=== PATIENT | female | born 1950 | race Caucasian/White ===

== ENCOUNTER → 2017-12-06 | Outpatient (CLI) | payer OTHER, MEDICARE ==
[~2017-12-06] MED LIST: ADVAIR HFA 230M12 GM INH; FLOMAX0.4 MG PO; METFORMIN HCL500 MG PO; MOBIC15 MG PO; NORVASC5 MG PO
--- NOTE | ~2017-12-06 | EKG ---
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
== END | disposition home or self-care (01) ==
LOC: LITH 08:20
DX: N20.1 Calculus of ureter (principal); Z53.8 Procedure and treatment not carried out for other reasons; Z79.899 Other long term (current) drug therapy
CPT/HCPCS: 50010